=== PATIENT | female | born 2000 | race Two or more races ===

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

== ENCOUNTER 2023-05-02 10:42 | Emergency (ER) | payer MEDICAID, OTHER ==
[~2023-05-02] VITALS: Ht 160 cm; Wt 68.6 kg
[2023-05-02 11:56] LABS: Basophils # (auto) 0.1 10 ^3/uL (0-0.2); Basophils % (auto) 0.4 % (0.0-2.0); Eosinophils # (auto) 0.1 10 ^3/uL (0-0.8); Eosinophils % (auto) 1.1 % (0.0-7.0); Hematocrit 40.8 % (36.0-46.0); Hemoglobin 13.5 g/dL (12.2-16.2); Lymphocytes # (auto) 2.5 10 ^3/uL (0.4-5.4); Lymphocytes % (auto) 18.7 % (10.0-50.0); Mean Corpuscular Hemoglobin 28.8 pg (28.0-32.0); Mean Corpuscular Volume 87.4 fL (80.0-100.0); Monocytes # (auto) 0.8 10 ^3/uL (0-1.3); Monocytes % (auto) 6.2 % (0.0-12.0); Neutrophils # (auto) 9.9 10 ^3/uL (1.6-8.6); Neutrophils % (auto) 73.6 % (37.0-80.0); Red Blood Cells 4.67 10^6/uL (4.0-5.20); Red Cell Distribution Width 12.5 % (11.8-14.3); White Blood Cell 13.4 10^3/uL (4.4-10.8)
[2023-05-02 12:32] VITALS: BP 123/80
== END 2023-05-02 14:39 | disposition home or self-care (01) ==
LOC: ER 10:42
DX: O20.8 Other hemorrhage in early pregnancy (principal); R10.2 Pelvic and perineal pain; F17.210 Nicotine dependence, cigarettes, uncomplicated; Z3A.01 Less than 8 weeks gestation of pregnancy
CPT/HCPCS: 36415; 76801; 76817; 84702; 85025; 86850; 86900; 86901

== ENCOUNTER 2023-05-21 11:58 | Emergency (ER) | payer MEDICAID ==
[~2023-05-21] VITALS: Ht 160 cm; Wt 69.1 kg
[2023-05-21 12:05] VITALS: BP 114/78; PULSE 120; RESP 20; TEMP 98.6; O2SAT 100
== END 2023-05-21 19:19 | disposition home or self-care (01) ==
LOC: ER 11:58
DX: O36.4XX0 Maternal care for intrauterine death, not applicable or unspecified (principal); O26.891 Other specified pregnancy related conditions, first trimester; R10.2 Pelvic and perineal pain; Z3A.01 Less than 8 weeks gestation of pregnancy
CPT/HCPCS: 36415; 76801; 76817; 84702